=== PATIENT | male | born 1980 | race Caucasian/White ===

== ENCOUNTER → 2017-10-02 | Outpatient (CLI) | payer OTHER ==
[2017-10-02 15:59] LABS: BASO # 0.1 (0.0-0.2); BASO % 0.6 % (0.0-2.0); EOS # 0.3 (0.0-0.7); EOS % 2.3 % (0-4.0); GRAN # 7.6 (1.4-6.5); GRAN % 66.9 % (42.2-75.2); HEMATOCRIT 43.8 % (42.0-52.0); HEMOGLOBIN 14.6 g/dl (13.5-18.0); LYMPH # 2.3 (1.2-3.4); LYMPH % 20.4 % (20.0-51.0); MEAN CELL VOLUME 85 fl (80.0-100.0); MEAN CORPUSCULAR HEMOGLOBIN 28 pg (27.0-31.0); MEAN CORPUSCULAR HGB CONC 33 g/dl (33.0-37.0); MEAN PLATELET VOLUME 9.6 fl (7.4-10.4); MONO # 1.1 (0.1-0.6); MONO % 9.2 % (1.7-9.3); PLATELET COUNT 297 K/mm3 (130-400); RED BLOOD COUNT 5.16 M/mm3 (4.20-5.60); REDCELL DISTRIBUTION WIDTH-CV 12.9 % (11.5-14.5)
[2017-10-02 16:06] LABS: BILIRUBIN,TOTAL 0.6 mg/dL (0.0-1.0); CHOLESTEROL RISK RATIO 4.9; CREATININE, serum 0.73 mg/dL (0.66-1.25); POTASSIUM 3.9 mmol/L (3.4-5.0); TOTAL PROTEIN 8.2 gm/dL (6.4-8.2)
[2017-10-02 16:35] LABS: TSH w REFLEX 1.65 uIU/mL (0.465-4.680)
== END ==
LOC: COL.LAB 14:47
PROVIDERS: Family Medicine
DX: Z13.1 Encounter for screening for diabetes mellitus (principal); Z13.220 Encounter for screening for lipoid disorders; Z13.29 Encounter for screening for other suspected endocrine disorder; E66.9 Obesity, unspecified

== ENCOUNTER → 2017-10-23 | Outpatient (CLI) | payer OTHER | LOC: COL.RAD 17:01 | DX: J98.4 Other disorders of lung (principal) ==

== ENCOUNTER → 2017-12-03 | Outpatient (CLI) | payer OTHER | LOC: LIGHT 15:48 | DX: Z09 Encounter for follow-up examination after completed treatment for conditions other than malignant neoplasm (principal) ==

== ENCOUNTER → 2017-12-05 | Outpatient (CLI) | payer OTHER ==
[~2017-12-05] VITALS: Ht 181.6 cm; Wt 160.1 kg
[2017-12-05 15:43] VITALS: BP 100/60; PULSE 88
== END ==
LOC: LIGHT 07:23
DX: F32.9 Major depressive disorder, single episode, unspecified (principal); E88.81 Metabolic syndrome and other insulin resistance; R73.01 Impaired fasting glucose; Z68.43 Body mass index [BMI] 50.0-59.9, adult; E78.1 Pure hyperglyceridemia; Z71.3 Dietary counseling and surveillance
CPT/HCPCS: G0463

== ENCOUNTER → 2017-12-17 | Outpatient (CLI) | payer OTHER | LOC: LIGHT 10:20 | DX: Z01.818 Encounter for other preprocedural examination (principal) ==